=== PATIENT | female | born 1950 | race Caucasian/White ===

== ENCOUNTER 2017-10-11 10:56 | Emergency (ER) | payer MEDICARE, OTHER ==
[2017-10-11] MEDS ORDERED: HYDROmorphone 1 MG/ML Syringe IVPUSH ONE (11:31)
[2017-10-11 11:53] VITALS: BP 154/71
--- NOTE | 2017-10-11 11:58 | EDM.PDOC ---
ED HPI GENERAL MEDICAL PROBLEM - General Chief Complaint: Lower Extremity Injury/Pain Stated Complaint: Right leg pain; fall Time Seen by Provider: 10/11/17 10:57 Source of Information: Reports: Patient, EMS Notes Reviewed, RN, RN Notes Reviewed History Limitations: Reports: No Limitations - History of Present Illness INITIAL COMMENTS - FREE TEXT/NARRATIVE: Patient is brought to the ED at [facility] via EMS after she slipped and fell on the ice while walking on the side walk. Patient states she felt immediate pain of the right leg. No previous injury or trauma. Patient is not able to bare any weight on the right leg. Patient denies any numbness, tingling , or paresthesia Onset: Today, Sudden Onset Date: 10/11/17 Left Hip Pain Score (Numeric/FACES): 10 - Related Data Allergies Allergy/AdvReac Type Severity Reaction Status Date / Time cholesterol meds Allergy Body Aches Uncoded 10/11/17 11:32 Home Meds: Home Meds . [Unable to Verify Home Med List] 10/11/17 [History] Past Medical History Genitourinary History: Reports: UTI, Recurrent Other Genitourinary History: Yeast infections with oral antibiotics. Review of Systems - Review of Systems Review Of Systems: See Below Constitutional: Denies: Chills, Fever Respiratory: Denies: Shortness of Breath, Cough Cardiovascular: Denies: Chest Pain, Palpitations Musculoskeletal: Reports: Leg Pain, Muscle Pain, Muscle Stiffness Skin: Reports: No Symptoms Neurological: Reports: No Symptoms. Denies: Numbness, Paresthesia, Tingling ED EXAM, GENERAL - Physical Exam Exam: See Below Exam Limited By: No Limitations General Appearance: Alert, No Apparent Distress Head: Atraumatic, Normocephalic Neck: Supple Respiratory/Chest: No Respiratory Distress, Lungs Clear, Normal Breath Sounds Cardiovascular: Normal Peripheral Pulses, Regular Rate, Rhythm Peripheral Pulses: 2+: Posterior Tibial (R), Dorsalis Pedis (R) Back Exam: Normal Inspection Extremities: Leg Pain, Limited Range of Motion, Other (shortening of right leg) Neurological: Alert, Oriented Skin Exam: Warm, Dry, Intact, Normal Color, No Rash Course - Vital Signs Last Recorded V/S: Last Vital Signs Temp 36.4 C 10/11/17 11:10 Pulse 82 10/11/17 11:10 Resp 16 10/11/17 11:10 BP 154/71 H 10/11/17 11:10 Pulse Ox - Orders/Labs/Meds Orders: Active Orders 24 hr Category Date Time Status Hip Min 2V or 3V Lt [CR] Stat Exams 10/11/17 10:57 Ordered Meds: Medications Discontinued Medications Generic Name Dose Route Start Last Admin Trade Name Adele PRN Reason Stop Dose Admin Hydromorphone HCl 1 mg 10/11/17 11:31 10/11/17 11:41 Dilaudid IVPUSH 10/11/17 11:32 1 mg ONETIME ONE Administration - Radiology Interpretation Free Text/Narrative:: Right Hip 2-3V: [place] fracture of proximal right femur, completely displaced. Awaiting radiology overread See scanned report in EMR Departure - Departure Time of Disposition: 12:01 Disposition: DC/Tfer to Acute Hospital 02 Condition: Good Clinical Impression: Femur fracture, right Qualifiers: Encounter type: initial encounter Femur location: unspecified portion of femur Fracture type: closed Fracture morphology: unspecified fracture morphology Qualified Code(s): S72.91XA - Unspecified fracture of right femur, initial encounter for closed fracture - Discharge Information Forms: Interfacility Transfer EMTALA - Problem List Review Problem List Initiated/Reviewed/Updated: Yes - My Orders Last 24 Hours: My Active Orders 10/11/17 10:57 Hip Min 2V or 3V Lt [CR] Stat - Assessment/Plan Last 24 Hours: My Active Orders 10/11/17 10:57 Hip Min 2V or 3V Lt [CR] Stat Plan: Patient will be transferred to [facility]. Dr. Alegria admitting provider. Report given. Patient will be sent BLS ground. Patient agrees with POC and wishes to proceed.
== END 2017-10-11 12:33 | disposition short-term general hospital (02) ==
LOC: VM.ED 10:56
DX: S72.142A Displaced intertrochanteric fracture of left femur, initial encounter for closed fracture (principal); W01.0XXA Fall on same level from slipping, tripping and stumbling without subsequent striking against object, initial encounter
CPT/HCPCS: 73502; 96374; 99285; J1170; 99284-GF

== ENCOUNTER 2018-03-24 08:32 | Emergency (ER) | payer MEDICARE, OTHER ==
[2018-03-24 08:48] VITALS: BP 150/85
--- NOTE | 2018-03-24 09:10 | EDM.PDOC ---
ED HPI GENERAL MEDICAL PROBLEM - General Chief Complaint: Genitourinary Problem Stated Complaint: POSSIBLE UTI Time Seen by Provider: 03/24/18 09:05 Source of Information: Reports: Patient, RN, RN Notes Reviewed History Limitations: Reports: No Limitations - History of Present Illness INITIAL COMMENTS - FREE TEXT/NARRATIVE: Patient presents to the ED at [facility] complaining of UTI symptoms. Patient states her symptoms began a couple of days ago. She denies any abdominal or pelvic pain. No N/V/D/. No fever or chills. No vaginal discharge or odor. Patient states she is staying well hydrated. Onset: Gradual Bladder Pain Score (Numeric/FACES): 8 - Related Data Allergies Allergy/AdvReac Type Severity Reaction Status Date / Time ezetimibe [From Vytorin] Allergy Cannot Verified 03/24/18 08:43 Remember simvastatin [From Vytorin] Allergy Cannot Verified 03/24/18 08:43 Remember cholesterol meds Allergy Body Aches Uncoded 10/11/17 11:32 Home Meds: Home Meds Nitrofurantoin Monohyd/M-Cryst [Macrobid 100 mg Capsule] 1 cap PO BID 7 Days # 14 capsule 03/24/18 [Rx] Past Medical History Genitourinary History: Reports: UTI, Recurrent Other Genitourinary History: Yeast infections with oral antibiotics. Oncologic (Cancer) History: Reports: Breast - Past Surgical History GI Surgical History: Reports: Appendectomy Musculoskeletal Surgical History: Reports: Arthroscopic Knee, Other (See Below) Other Musculoskeletal Surgeries/Procedures:: bunionectomy Social & Family History - Tobacco Use Smoking Status *Q: Never Smoker - Recreational Drug Use Recreational Drug Use: No ED ROS GENERAL - Review of Systems Review Of Systems: See Below Constitutional: Denies: Fever, Chills, Weakness Respiratory: Denies: Shortness of Breath, Cough Cardiovascular: Denies: Chest Pain, Palpitations GI/Abdominal: Denies: Abdominal Pain, Nausea, Vomiting : Reports: Dysuria, Frequency, Urgency Skin: Reports: No Symptoms Neurological: Reports: No Symptoms ED EXAM, RENAL/ - Physical Exam Exam: See Below Exam Limited By: No Limitations General Appearance: Alert, No Apparent Distress Respiratory/Chest: No Respiratory Distress, Lungs Clear, Normal Breath Sounds Cardiovascular: Normal Peripheral Pulses, Regular Rate, Rhythm GI/Abdominal: Normal Bowel Sounds, Soft, Non-Tender (Female) Exam: Deferred Neurological: Alert, Oriented Skin Exam: Warm, Dry, Intact, Normal Color Course - Vital Signs Last Recorded V/S: Last Vital Signs Temp 36.7 C 03/24/18 08:35 Pulse 98 03/24/18 08:35 Resp 16 03/24/18 08:35 BP 150/85 H 03/24/18 08:35 Pulse Ox 96 03/24/18 08:35 - Orders/Labs/Meds Labs: Laboratory Tests 03/24/18 Range/Units 08:43 Urine Color Yellow (YELLOW) Urine Appearance Cloudy H (CLEAR) Urine pH 7.0 (5.0-8.0) Ur Specific [place] 1.020 Urine Protein 100 H (NEGATIVE) mg/dL Urine Glucose (UA) Negative (NEGATIVE) mg/dL Urine Ketones Negative (NEGATIVE) mg/dL Urine Occult Blood Moderate H (NEGATIVE) Urine Nitrite Negative (NEGATIVE) Urine Bilirubin Negative (NEGATIVE) Urine Urobilinogen 0.2 (0.2) EU/dL Ur Leukocyte Esterase Large H (NEGATIVE) Urine RBC 10-20 H (NOT SEEN) /HPF Urine WBC 30-40 H (NOT SEEN) /HPF Ur Squamous Epith Cells Few H (NEGATIVE) /HPF Urine Bacteria Few H (NEGATIVE) /HPF Urine Mucus Rare H (NEGATIVE) /LPF Departure - Departure Time of Disposition: 09:07 Disposition: Home, Self-Care 01 Condition: Good Clinical Impression: Acute cystitis with hematuria - Discharge Information Prescriptions: Nitrofurantoin Monohyd/M-Cryst [Macrobid 100 mg Capsule] 1 cap PO BID 7 Days # 14 capsule Instructions: Urinary Tract Infection, Adult Forms: ED Department Discharge Additional Instructions: 1. Stay well hydrated and rest 2. Take medication for the full coarse, even if you are feeling better 3. LOTS of water 4. May try cranberry juice 5. Call us with any questions or concerns - Problem List Review Problem List Initiated/Reviewed/Updated: Yes
== END 2018-03-24 09:20 | disposition home or self-care (01) ==
LOC: VM.ED 08:32
DX: N30.01 Acute cystitis with hematuria (principal); Z88.8 Allergy status to other drugs, medicaments and biological substances
CPT/HCPCS: 81001; 99283

== ENCOUNTER 2023-03-05 16:17 | Emergency (ER) | payer MEDICARE, OTHER ==
[2023-03-05 16:36] LABS: BILIRUBIN,URINE NEGATIVE (NEGATIVE); COLOR,URINE YELLOW (YELLOW); GLUCOSE,URINE NEGATIVE (NEGATIVE); KETONES,URINE NEGATIVE (NEGATIVE); LEUKOCYTE ESTERASE,URINE SMALL (NEGATIVE); NITRITE,URINE NEGATIVE (NEGATIVE); OCCULT BLOOD,URINE NEGATIVE (NEGATIVE); PROTEIN,URINE NEGATIVE (NEGATIVE)
[2023-03-05 16:37] LABS: APPEARANCE,URINE SLIGHTLY CLOUDY (CLEAR)
[2023-03-05 16:42] LABS: BACTERIA,URINE FEW /HPF (NOT SEEN); MUCUS,URINE OCCASIONAL /LPF (NOT SEEN); RBC,URINE 0-5 /HPF (NOT SEEN); SQUAMOUS EPITHELIAL CELLS,UR FEW /HPF (NOT SEEN)
[2023-03-05] MEDS ORDERED: Take Home: Nitrofurantoin Monohydrate/Macrocrystalline 100 MG, 6 Cap Pack PO ONE (16:47)
[2023-03-05 20:43] VITALS: BP 130/80; PULSE 75
== END 2023-03-05 16:57 | disposition home or self-care (01) ==
LOC: VM.ED 16:17
DX: N39.0 Urinary tract infection, site not specified (principal); Z88.8 Allergy status to other drugs, medicaments and biological substances
CPT/HCPCS: 81001; 87086; 99283; 99284; A9270-GY

== ENCOUNTER 2025-01-11 11:38 | Emergency (ER) | payer MEDICARE, OTHER ==
[2025-01-11 12:38] VITALS: PULSE 66
[2025-01-11] MEDS: Lisinopril 10 MG Tab PO ONE (12:50)
[2025-01-11 13:17] VITALS: BP 151/74
== END 2025-01-11 13:15 | disposition home or self-care (01) ==
LOC: VM.ED 11:38
DX: I10 Essential (primary) hypertension (principal); Z90.49 Acquired absence of other specified parts of digestive tract; Z79.899 Other long term (current) drug therapy; Z88.8 Allergy status to other drugs, medicaments and biological substances
CPT/HCPCS: 99283; 99284; A9270